=== PATIENT | male | born 1970 | race Caucasian/White ===

== ENCOUNTER → 2017-01-31 | Outpatient (CLI) | payer MEDICAID ==
[~2017-01-31] MED LIST: ALBUTEROL-200 PUFFS/ IH; ASPIRIN 325MG325 MG PO; BACTRIM DS 8001 TAB PO; COREG 6.25MG6.25 MG PO; DULERA1 AR1 IH; FLEXERIL10 MG PO; KEFLEX500 M1 PO; LORTAB 5/500 501 TAB PO; MEDROL 4MG. DOSE4 MG PO; NASONEX0.05 MG/AC; PLAVIX75 MG PO; ULTRAM 50 MG TA50 MG PO
[2017-01-31 09:35] LABS: BUN 25 mg/dL (7-18)
[2017-01-31 09:38] LABS: GFR (ESTIMATED) 90 ML/MIN (>60)
== END ==
LOC: LAB 08:26
PROVIDERS: Nurse Practitioner Family
DX: E11.9 Type 2 diabetes mellitus without complications (principal)

== ENCOUNTER → 2017-02-21 | Outpatient (CLI) | payer MEDICAID ==
[~2017-02-21] MED LIST changes: +LIPITOR40 MG PO; +METFORMIN500 MG PO; +PERCOCET 325 MG1 TA4 PO
--- NOTE | 2017-02-24 05:27 | RADIOLOGY REPORT PS360 ---
MRI-L-SPINE W/O HISTORY: Low back pain following injury, right leg weakness pain and numbness and tingling CLOSED COMPRESSION FX OF FOURTH LUMBAR VERTEBRA ORDERING PHYSICIAN: Neymar Lanier MD PATIENT AGE: 47 years COMPARISON: None TECHNIQUE: Standard multiplanar multiecho sequences are performed without contrast. 3-D MIP and myelographic images are also rendered and reviewed FINDINGS: There is normal alignment. The spinal cord ends at the L1-L2 level. L1-L2, and L2-L3 have an unremarkable appearance. L3-L4: Unremarkable disc space. Mild facet and ligamentum flavum hypertrophy. There is mild compression changes involving the L4 vertebral body centrally and anteriorly with loss of height of approximately 10% anteriorly. There is decreased T1 and increased T2 signal involving the mid and superior aspect of the L4 vertebral body. No retropulsed fragments are evident. No disc herniation. L4-L5 disc space shows very minimal bulging disc along with mild facet hypertrophy. A small amount fluid is present in the facet joints at L4-L5 L5-S1: Minimal bulging disc slightly eccentric toward the left with mild left lateral recess and foraminal narrowing. There does appear to be an annular tear involving the disc centrally and on the left at L5-S1 with minimal bulge. IMPRESSION: 1. Mild acute compression fracture involves the L4 vertebral body as described above without retropulsion. 2. Mild bulging disc at L4-L5 and L5-S1 with small annular tear at L5-S1
== END ==
LOC: RAD 14:47
DX: S32.040A Wedge compression fracture of fourth lumbar vertebra, initial encounter for closed fracture (principal)